=== PATIENT | male | born 1975 | race Hispanic/Latino ===

== ENCOUNTER 2018-07-17 04:30 | Observation (INO) | payer BC, SELFPAY ==
--- OUTSIDE RECORDS SUMMARY | 2018-07-17 06:02 | XMS REPORT | Clinical Summary ---
:1975 Author Organization [facility] Address [address] [place] [address] Care Team Providers Name Role Phone Mae Boyle MD Primary Care Provider Allergies Active Allergy Reactions Severity Noted Date Comments Caffeine Coffee (Coffea Arabica) 03/29/2016 Current Medications Prescription Sig. Disp. Refills Start Date End Date Status anastrozole Take 1 mg by 1 05/30/2017 Active (ARIMIDEX) 1 mg mouth once chemo tablet daily. testosterone Inject into the Active cypionate shoulder, thigh, (DEPOTESTOTERONE or buttocks CYPIONATE) 200 every 14 mg/mL injection (fourteen) days. naproxen Take 1 tablet 28 tablet 0 01/30/2018 Active (NAPROSYN) 500 MG (500 mg total) 9 tabletIndications: by mouth 2 (two) Low back pain with times a day with sciatica, sciatica meals. laterality unspecified, unspecified back pain laterality, unspecified chronicity metroNIDAZOLE Take 1 tablet 30 tablet 0 07/19/2017 (FLAGYL) 500 MG (500 mg total) 7 tablet by mouth 3 (three) times a day for 10 days. ciprofloxacin Take 1 tablet 20 tablet 0 07/19/2017 (CIPRO) 500 MG (500 mg total) 7 tablet by mouth 2 (two) times a day for 10 days. butenafine 1 % Apply 1 24 g 0 07/19/2017 Discontinued cream application 7 topically 2 (two) times a day. Apply to affected areas for 2 weeks amoxicillin 08/20/2017 Discontinued (AMOXIL) 500 MG 7 capsule pantoprazole 08/20/2017 Discontinued (PROTONIX) 40 MG 7 EC tablet oseltamivir Take 1 capsule 10 capsule 0 08/21/2017 (TAMIFLU) 75 MG (75 mg total) by 7 capsuleIndications mouth 2 (two) : Cough times a day for 5 days. Active Problems Problem Noted Date Hyperlipidemia 12/28/2016 Resolved Problems Problem Noted Date Resolved Date Malignant neoplasm of testis 12/28/2016 07/19/2017 Encounters Date Type Specialty Care Team Description 01/30/2018 Office Visit Family Mae Moreno, Dizziness ( Primary Dx); Low back pain with sciatica, sciatica laterality unspecified, unspecified back pain laterality, unspecified chronicity 01/14/2018 Telephone Family Mae Moreno MD 01/14/2018 Telephone Family Mae Moreno MD 10/07/2017 Office Visit Family Medicine Colleen Dinh Annual physical exam (Primary Dx); MD Yogi Impaired glucose tolerance; Alfred, Tram Cornelius, Other fatigue DO 09/25/2017 Telephone Family Medicine Aneesh Jenkins, DRY HEAT ROOM ATTENDANT 09/25/2017 Telephone Family Medicine Aneesh Jenkins, DRY HEAT ROOM ATTENDANT 08/22/2017 Telephone Family Medicine Mae Boyle MD 08/21/2017 Office Visit Family Mae Moreno, Sore throat ( Primary Dx); Cough 08/21/2017 Telephone Family Medicine Jessy Anaya, DRY HEAT ROOM ATTENDANT 07/24/2017 Office Visit Family Medicine Gisela Barnes, Abdominal pain, unspecified location (Primary Dx); Nausea and vomiting, intractability of vomiting not specified, unspecified vomiting type; Epistaxis; Dizziness; Headache, unspecified headache type; Speech disturbance, unspecified type; History of concussion; History of testicular cancer; Low testosterone 07/19/2017 Lab Lab Mae Boyle, Periumbilical abdominal pain 07/19/2017 Office Visit Family Mae Moreno, Acute pain of right shoulder (Primary Dx); Periumbilical abdominal pain; Onychomycosis of toenail; Tinea pedis of both feet after 07/16/2017 Immunizations Name Dates Previously Given Next Due Tdap 03/29/2010 Family History Medical History Relation Name Comments Heart murmur Brother Hypertension Father Diabetes Maternal Grandfather Diabetes Maternal Grandmother Liver cancer Maternal Grandmother Stroke Mother Diabetes Paternal Grandfather Diabetes Paternal Grandmother Hyperlipidemia Sister Relation Name Status Comments Brother Father Alive Maternal Grandfather Maternal Grandmother Mother Alive Paternal Grandfather Paternal Grandmother Sister Social History Tobacco Use Types Packs/Day Years Used Date Never Smoker Smokeless Tobacco: Never Used Alcohol Use Drinks/Week oz/Week Comments Yes ocassional Sex Assigned at Date Recorded Not on file Last Filed Vital Signs Vital Sign Reading Time Taken Blood Pressure 124/62 01/30/2018 11:59 AM CDT Pulse 93 01/30/2018 11:59 AM CDT Temperature 36.9 C (98.4 F) 01/30/2018 11:59 AM CDT Respiratory Rate 16 07/24/2017 7:59 AM CDT Oxygen Saturation 95% 01/30/2018 11:59 AM CDT Inhaled Oxygen Concentration - - Weight 108 kg (239 lb) 01/30/2018 11:59 AM CDT Height 174 cm (5' 8.5") 01/30/2018 11:59 AM CDT Body Mass Index 35.81 01/30/2018 11:59 AM CDT Plan of Treatment Health Maintenance Due Date Last Done Comments INFLUENZA VACCINE 06/18/2018 Procedures Procedure Name Priority Date/Time Associated Diagnosis Comments POCT RAPID STREP A Routine 08/21/2017 12:25 Sore throat Results for this PM CDT procedure are in the results section. POCT INFLUENZA A/B Routine 08/21/2017 12:22 Cough Results for this PM CDT procedure are in the results section. AMYLASE LEVEL Routine 07/19/2017 1:21 Periumbilical Results for this PM CDT abdominal pain procedure are in the results section. URINALYSIS, COMPLETE, Routine 07/19/2017 1:21 Periumbilical Results for this WITH REFLEX TO PM CDT abdominal pain procedure are in CULTURE the results section. COMPREHENSIVE Routine 07/19/2017 1:21 Periumbilical Results for this METABOLIC PANEL PM CDT abdominal pain procedure are in the results section. CBC WITH PLATELET AND Routine 07/19/2017 1:21 Periumbilical Results for this DIFFERENTIAL PM CDT abdominal pain procedure are in the results section. after 07/16/2017 Results POC rapid strep A (08/21/2017 12:25 PM) Rapid strep A antigen result Negative Negative Specimen Swab POC Influenza A/B (08/21/2017 12:22 PM) Rapid Influenza A Ag negative Rapid Influenza B Ag negative Specimen Nasopharyngeal URINALYSIS, COMPLETE, WITH REFLEX TO CULTURE (07/19/2017 1:21 PM) Color, UA DARK YELLOW YELLOW [employer] Appearance CLEAR CLEAR [facility] Specific gravity, urine 1.028 1.001 - 1.035 [facility] pH, urine 6.5 5.0 - 8.0 [facility] Glucose, urine NEGATIVE NEGATIVE [facility] Bilirubin, UA NEGATIVE NEGATIVE [facility] Ketones, UA NEGATIVE NEGATIVE [facility] Occult blood, urine NEGATIVE NEGATIVE [facility] Protein, UA NEGATIVE NEGATIVE [facility] Nitrite, UA NEGATIVE NEGATIVE [facility] Leukocyte esterase, UA NEGATIVE NEGATIVE [facility] WBC, UA NONE SEEN < OR=5 /HPF [facility] RBC, UA 0-2 < OR=2 /HPF [facility] Squamous epithelial NONE SEEN < OR=5 /HPF [facility] cells, UA Bacteria, UA NONE SEEN NONE SEEN /HPF [facility] Hyaline casts, UA NONE SEEN NONE SEEN /LPF [facility] Reflex NO CULTURE INDICATED [facility] Specimen Blood Resulting Agency Comment Performing Organization Information: Site ID: [id number] Name: [facility] Address: [address] [place] [id number] Director: Tammi Jack MD Performing Organization Address City/State/Zipcode Phone Number [employer] [facility] [address] [place], [place] [id number] CBC with platelet and differential (07/19/2017 1:21 PM) WBC 8.3 3.8 - 10.8 Thousand/uL [facility] RBC 6.28 (H) 4.20 - 5.80 Million/uL [facility] HGB 17.0 13.2 - 17.1 g/dL [facility] HCT 51.3 (H) 38.5 - 50.0 % [facility] MCV 81.7 80.0 - 100.0 fL [facility] MCH 27.1 27.0 - 33.0 pg [facility] MCHC 33.1 32.0 - 36.0 g/dL [facility] RDW 13.0 11.0 - 15.0 % [facility] Platelet count 219 140 - 400 Thousand/uL [facility] MPV 11.3 7.5 - 12.5 fL [facility] Neutrophils, absolute 4,250 1,500 - 7,800 cells/uL [facility] Lymphocytes, absolute 2,648 850 - 3,900 cells/uL [facility] Monocytes, absolute 772 200 - 950 cells/uL [facility] Eosinophils, absolute 564 (H) 15 - 500 cells/uL [facility] Basophils, absolute 66 0 - 200 cells/uL [facility] Neutrophils 51.2 % [facility] Lymphocytes 31.9 % [facility] Monocytes 9.3 % [facility] Eosinophils 6.8 % [facility] Basophils + RC 0.8 % [facility] Specimen Blood Resulting Agency Comment Performing Organization Information: Site ID: [id number] Name: [facility] Address: [address] [place] [id number] Director: Tammi Jack MD Performing Organization Address [facility] Phone Number [facility] [place] [phone] Amylase level (07/19/2017 1:21 PM) Amylase 30 21 - 101 U/L [employer] [facility] Specimen Blood Resulting Agency Comment Performing Organization Information: Site ID: [id number] Name: [facility] Address: [address] [place] [phone] Director: Tammi Jack MD Performing Organization Address [facility] Phone Number [facility] [employer] [address] [address] Comprehensive metabolic panel (07/19/2017 1:21 PM) Glucose 88 65 - 99 mg/dL [employer] [facility] Comment: [facility] Fasting reference interval BUN, whole blood 16 7 - 25 mg/dL [employer] Creatinine 1.17 0.60 - 1.35 mg/dL [facility] EGFR Non-Afr. Chinese 76 > OR=60 [facility] mL/min/1.73m2 [facility] EGFR 89 > OR=60 [facility] mL/min/1.73m2 [facility] BUN/creatinine ratio NOT APPLICABLE 6 - 22 (calc) [facility] Sodium 144 135 - 146 mmol/L [facility] Potassium 4.9 3.5 - 5.3 mmol/L [facility] Chloride 104 98 - 110 mmol/L [facility] CO2 28 20 - 31 mmol/L [facility] Calcium 10.1 8.6 - 10.3 mg/dL [facility] Protein 7.0 6.1 - 8.1 g/dL [facility] Albumin, S 4.4 3.6 - 5.1 g/dL [facility] Globulin, total 2.6 1.9 - 3.7 g/dL [employer] [facility] (calc) [facility] Albumin/globulin ratio 1.7 1.0 - 2.5 (calc) [facility] Total bilirubin 0.7 0.2 - 1.2 mg/dL [facility] Alkaline phosphatase 119 (H) 40 - 115 U/L [facility] AST 24 10 - 40 U/L [facility] ALT 30 9 - 46 U/L [employer] [facility] Specimen Blood Resulting Agency Comment Performing Organization Information: Site ID: [id number] Name: [facility] Address: [address] [place] [address] Director: Tammi Jack MD Performing Organization Address City/State/Zipcode Phone Number [facility] [employer] [facility] [address] [place] [address] after 07/16/2017 Insurance Payer Benefit Plan / Group Subscriber ID Type Phone Address BCBS MARIELY WALLACE xxxxxxxxxxxx PPO [phone] [address]
[2018-07-17 06:22] VITALS: BMI 35.9
[2018-07-17] MEDS ORDERED: ACETAMINOPHEN 500 MG TAB PO PRN (07:21)
[2018-07-17] MEDS ORDERED: MORPHINE 4 MG/ML SYR IV PRN (07:21)
[2018-07-17] MEDS ORDERED: SODIUM CHLORIDE 0.9% 10ML INJ IV PRN (07:38)
--- NOTE | 2018-07-17 08:58 | P.HP ---
Certification for Inpatient Patient admitted to: Observation With expected LOS: <2 Midnights Patient will require the following post-hospital care: None Practitioner: I am a practitioner with admitting privileges, knowledge of patient current condition, hospital course, and medical plan of care. Services: Services provided to patient in accordance with Admission requirements found in Title 42 Section 412.3 of the Code of Federal Regulations Patient History Date of Service: 07/17/18 Reason for admission: Chest pain rule out acute coronary syndrome History of Present Illness: Patient is a 42-year-old gentleman who is admitted to the hospital with chest discomfort. Patient was admitted to the hospital from the [place] emergency room. Patient also had hematemesis. Patient was admitted to the hospital for further evaluation. Patient denies any other symptoms. Patient's chest pain was persistent. Patient also had diaphoresis. Patient denies any other complaints. Patient will be admitted for further evaluation. Allergies coffee (Coffea arabica) Adverse Reaction (Verified 07/17/18 06:35) Itching/Hives/Rash Coke Allergy (Mild, Uncoded 06/29/13 02:24) Hives Home Medications: Docosahexanoic Acid/Epa [Fish Oil Softgel] 1 each PO DAILY 06/29/13 Glutamine 1 tbsp PO BID 06/29/13 Multivitamin [Daily Multivitamin] 1 each PO DAILY 06/29/13 levoFLOXacin [Levaquin*] 750 mg PO DAILY #7 tab 07/03/13 - Past Medical/Surgical History Has patient received pneumonia vaccine in the past: No Diabetic: No -: Testicular CA -: Diverticulitis -: ANxiety -: Removed left testical and tumor, rotator cuff sx left shoulder (2004). -: Left knee reconstruction, fracture repair of scalp on right side, -: plastic placed on left side of scalp, muscle repair of left arm - Family History Mother Medical History: Stroke - Social History Smoking Status: Never smoker Alcohol use: Yes CD- Drugs: No Caffeine use: No Place of Residence: Home Review of Systems 10-point ROS is otherwise unremarkable Physical Examination - Vital Signs Temperature: 97.0 F Blood Pressure: 122/78 Pulse: 54 Respirations: 18 Pulse Ox (%): 99 - Physical Exam General: Alert, In no apparent distress, Oriented x3 HEENT: Atraumatic, PERRLA, Mucous membr. moist/pink, EOMI, Sclerae nonicteric Neck: Supple, 2+ carotid pulse no bruit, No LAD, Without JVD or thyroid abnormality Respiratory: Clear to auscultation bilaterally, Normal air movement Cardiovascular: Regular rate/rhythm, Normal S1 S2, No murmurs Gastrointestinal: Normal bowel sounds, Soft and benign, Non-distended, No tenderness Musculoskeletal: No clubbing, No swelling, No tenderness Integumentary: No rashes Neurological: Normal gait, Normal speech, Normal strength at 5/5 x4 extr, Normal tone, Sensation intact, Cranial nerves 3-12 intact, Normal affect Lymphatics: No axilla or inguinal lymphadenopathy Assessment & Plan - Problems (Diagnosis) (1) Chest pain, rule out acute myocardial infarction Current Visit: Yes Status: Acute (2) History of testicular cancer Current Visit: Yes Status: Acute (3) Hematemesis Current Visit: Yes Status: Acute - Plan 1. Serial troponins and EKG 2. Cardiology consultation 3. Echocardiogram and stress test if cardiology is agreeable 4. Anti-platelet therapy, anti coagulation, beta-hua, statin, and O2 as needed 5. IV morphine for pain 6. Nitro p.r.n. 7. PPI drip 8. Serial H&H 9. GI and DVT prophylaxis Discharge Plan: Home Plan to discharge in: 24 Hours - Advance Directives Does patient have a Living Will: No Does patient have a Durable POA for Healthcare: No - Code Status/Comfort Care Code Status Assessed: Yes Code Status: Full Code Critical Care: No Time Spent Managing PTS Care (In Minutes): 50
[2018-07-17] MEDS: ENOXAPARIN 40 MG/0.4 ML SQ SCH (09:26)
[2018-07-17] MEDS: PANTOPRAZOLE 40 MG INJ IVP SCH ×2 (09:27→23:09)
[2018-07-17] MEDS: METOPROLOL TAR 50 MG TAB PO SCH ×2 (09:27→23:09)
[2018-07-17] MEDS: ASPIRIN EC 81 MG TAB PO SCH (09:28)
[2018-07-17 09:50] VITALS: O2SAT 99
--- NOTE | 2018-07-17 09:52 | RAD REPORT ---
EXAM DESCRIPTION: US - Abdomen Exam Limited - 07/17/2018 9:17 am CLINICAL HISTORY: Abdominal pain/right upper quadrant pain COMPARISON: None FINDINGS: Two small echogenic structures are present the gallbladder neck. Posterior shadowing is no t seen. The gallbladder wall is not thickened. The biliary tree is normal caliber. IMPRESSION: Two small echogenic structures within the gallbladder probably represent polyps or echog enic bile. Another consideration is that they represent stones which did not shadow secondary to a co mbination of its small size and technical factors. There is no evidence of cholecystitis
--- NOTE | 2018-07-17 11:04 | RAD REPORT ---
EXAM DESCRIPTION: CTAbdomen Pelvis W Contrast - 07/17/2018 10:25 am CLINICAL HISTORY: Abdominal pain. hemetemesis COMPARISON: CT ABD PELVIS W CONTRAST dated 07/11/2013; CT ABD PELVIS W CONTRAST dated 06/28/2013 TECHNIQUE: Biphasic CT imaging of the abdomen and pelvis was performed with 100 ml non-ionic IV cont rast. All CT scans are performed using dose optimization technique as appropriate and may include automated exposure control or mA/KV adjustment according to patient size. FINDINGS: Small calcified granulomas present in medial right lung base.Small gallstones are present gallbladder. The liver, spleen, pancreas, adrenal glands and kidneys are within normal limits. No bowel obstruction, free air, free fluid or abscess. Postsurgical changes are present about the sig moid colon. The appendix is normal. No evidence of significant lymphadenopathy. No suspicious bony findings. IMPRESSION: Cholelithiasis.
--- NOTE | 2018-07-17 17:24 | ECHO ---
HEIGHT: 5 ft 8 in WEIGHT: 236 lb 8 oz DATE OF STUDY: 07/17/[address]: Mecca Hector MD 2-DIMENSIONAL: YES M.MODE: YES DOPPLER: YES COLOR FLOW: YES TDS: PORTABLE: DEFINITY: BUBBLE STUDY: DIAGNOSIS: CONGESTIVE HEART FAILURE CARDIAC HISTORY: CATHERIZATION: NO SURGERY: NO PROSTHETIC VALVE: NO PACEMAKER: NO MEASUREMENTS (cm) DIASTOLIC (NORMALS) SYSTOLIC (NORMALS) IVSd 1.0 (0.6-1.2) LA Diam 3.3 (1.9-4.0) LVEF 75% LVIDd 4.6 (3.5-5.7) LVIDs 2.6 (2.0-3.5) %FS 43% LVPWd 1.1 (0.6-1.2) Ao Diam 3.8 (2.0-3.7) 2 DIMENSIONAL ASSESSMENT: RIGHT ATRIUM: NORMAL LEFT ATRIUM: NORMAL RIGHT VENTRICLE: NORMAL LEFT VENTRICLE: NORMAL TRICUSPID VALVE: NORMAL MITRAL VALVE: NORMAL PULMONIC VALVE: NORMAL AORTIC VALVE: SCLEROSIS PERICARDIAL EFFUSION: NONE AORTIC ROOT: NORMAL LEFT VENTRICULAR WALL MOTION: NORMAL DOPPLER/COLOR FLOW: NORMAL COMMENTS: AORTIC SCLEROSIS WITH NO STENOSIS. NORMAL LEFT VENTRICULAR SIZE AND FUNCTION. NO WALL MOTION ABNORMALITY. TECHNOLOGIST: CORIE MILLER
[2018-07-18 01:23] LABS: Urine Appearance CLEAR; Urine Bilirubin NEGATIVE (NEG); Urine Blood NEGATIVE (NEG); Urine Color YELLOW; Urine Glucose NEGATIVE (NEG); Urine Microscopic Reflex NO UMIC; Urine Protein NEGATIVE (NEG); Urine Specific Gravity >=1.030 (1.005-1.030)
[2018-07-18] MEDS ORDERED: REGADENOSON 0.4 MG/5 ML SYR IV ONE (08:08)
[2018-07-18 08:49] VITALS: BP 114/66
--- NOTE | 2018-07-18 12:26 | RAD REPORT ---
EXAM DESCRIPTION: NM - Rest Stress Cardiac Imaging - 07/18/2018 12:21 pm CLINICAL HISTORY: CP Chest pain. COMPARISON: No comparisons TECHNIQUE: The patient was administered approximately 10mCi of Tc 99m Sestamibi prior to resting SPE CT imaging of the heart. The patient was then administered approximately 30 mCi of Tc 99m Sestamibi f ollowing exercise or pharmacologic stress. Multiplanar SPECT images were reviewed. FINDINGS: No stress induced ischemic defect is seen to suggest stress induced ischemia. No fixed def ect is seen to suggest hibernating myocardium or scarred myocardium. The end diastolic volume is 106 ml, the end systolic volume is 38 ml, and the ejection fraction is 64 %. IMPRESSION: No stress induced ischemia.
[2018-07-18] MEDS: PANTOPRAZOLE 40 MG INJ IVP SCH (12:44)
[2018-07-18] MEDS: METOPROLOL TAR 50 MG TAB PO SCH (12:44)
[2018-07-18] MEDS: ASPIRIN EC 81 MG TAB PO SCH (12:45)
[2018-07-18] MEDS: ENOXAPARIN 40 MG/0.4 ML SQ SCH (12:46)
[2018-07-18 14:58] VITALS: TEMP 97
--- NOTE | 2018-07-18 15:05 | P.SSS ---
Patient History Date of Service: 07/18/18 Reason for admission: Chest pain rule out acute coronary syndrome History of Present Illness: Patient is a 42-year-old gentleman who is admitted to the hospital with chest discomfort. Patient was admitted to the hospital from the [place] emergency room. Patient also had hematemesis. Patient was admitted to the hospital for further evaluation. Patient denies any other symptoms. Patient's chest pain was persistent. Patient also had diaphoresis. Patient denies any other complaints. Patient will be admitted for further evaluation. Allergies coffee (Coffea arabica) Adverse Reaction (Verified 07/17/18 06:35) Itching/Hives/Rash Coke Allergy (Mild, Uncoded 06/29/13 02:24) Hives Home Medications: Anastrozole [Arimidex*] 1 mg PO DAILY 07/17/18 Testost Cypionate [Depo-Testosterone*] 0.5 ml IM EVERY 7TH DAY 07/17/18 - Past Medical/Surgical History Has patient received pneumonia vaccine in the past: No Diabetic: No -: Testicular CA -: Diverticulitis -: ANxiety -: Removed left testical and tumor, rotator cuff sx left shoulder (2004). -: Left knee reconstruction, fracture repair of scalp on right side, -: plastic placed on left side of scalp, muscle repair of left arm - Family History Mother -: Stroke - Social History Smoking Status: Never smoker Alcohol use: Yes CD- Drugs: No Caffeine use: No Place of Residence: Home Review of Systems 10-point ROS is otherwise unremarkable General: As per HPI Physical Examination - Vital Signs Temperature: 97 F Blood Pressure: 114/66 Pulse: 61 Respirations: 18 Pulse Ox (%): 97 - Physical Exam General: Alert, In no apparent distress HEENT: Atraumatic, PERRLA, Mucous membr. moist/pink, EOMI, Sclerae nonicteric Neck: Supple, 2+ carotid pulse no bruit, No LAD, Without JVD or thyroid abnormality Respiratory: Clear to auscultation bilaterally, Normal air movement Cardiovascular: Regular rate/rhythm, Normal S1 S2 Gastrointestinal: Normal bowel sounds, No tenderness Musculoskeletal: No tenderness Integumentary: No rashes Neurological: Normal gait, Normal speech, Normal strength at 5/5 x4 extr, Normal tone, Normal affect Lymphatics: No axilla or inguinal lymphadenopathy - Diagnosis (Problem(s)) (1) Chest pain, rule out acute myocardial infarction Onset Date: 07/18/18 Current Visit: Yes Status: Ruled-out (2) Hematemesis Onset Date: 07/18/18 Current Visit: Yes Status: Resolved (3) History of testicular cancer Onset Date: 07/18/18 Current Visit: Yes Status: Chronic Treatment Summary: Overall during the hospital stay patient remained stable. Patient was initially admitted to the hospital for chest pain and hematemesis. Patient's chest pain was worked up to rule out ACS. Patient had cardiology consulted who recommended patient get an echocardiogram and stress test done here in the hospital. Patient's echocardiogram and stress test were both negative for any acute coronary syndrome. Cardiology then recommended the patient be discharged home safely. Patient was also complaining of having some hematemesis. However chest x-ray was negative for any acute abnormality. Patient at that time was asked to follow up with pulmonology outpatient for his hematemesis. Patient stated that his hematemesis has resolved and he has not had any episodes for past 2-3 days. Most likely patient's hematemesis was secondary to coughing. Patient demonstrated understanding and thus was discharged home under stable condition. - Disposition Disposition: ROUTINE DISCHARGE Condition: GOOD Patient Discharge Instructions: Please f.u with PCP and Pulmonology. . You were admitted to the hosptial for Chest Pain and had workup for it. Your ECHO and Stress test where within normal limits without evidence of coronary heart disease. You also had hematemesis which seems to be resolved and thus can f.u with Pulmonology outpt. Diet: Regular Activity: Ad addie
--- NOTE | 2018-07-19 05:50 | CON ---
Date of Consultation: 07/18/2018 Additional Admitting Physician: Namita Patel MD. Reason For Consultation: Chest pain. History Of Present Illness: Mr. Verdugo is a 42-year-old [place] male without any significant past medical history. He came in with chest tightness and sharp chest pain, nausea, diaphoresis, an d hypertension. Under some stress at work. No previous cardiac history. Denied PND, orthopnea, ped al edema, palpitations, or syncope. Workup is negative so far. Past Medical History: Negative. Allergies: TO COFFEE AND COKE. Medications: At home include the testosterone. 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 Review of Systems: Negative. Social History: Negative for tobacco. Family History: Negative for heart disease. Physical Examination: Vital Signs: Stable. He was afebrile. HEENT: Negative. Neck: Supple without any bruit, lymphadenopathy, JVD, or thyromegaly. Chest: Clear to auscultation and percussion. Cardiac: Revealed regular rhythm and rate without any murmurs, gallops, or rubs. Abdomen: Benign. Extremities: Revealed no clubbing, cyanosis, or edema. Diagnostic Data: Normal. Impression And Plan: Atypical chest pain with different characters of tightness and sharpness, nause a, diaphoresis. I think his symptoms may be related to hypertension. I suggest an echocardiogram an d a Lexiscan before we make any further decisions. But I will suggest some antihypertensive medicati on, either an ARB or an TERESSA inhibitor or even a low-dose beta-hua before he goes home. We would be happy to see him in the office if his workup is negative. GISELLE/JINNY Voice ID: [id number] Report ID: [id number]
--- NOTE | 2018-07-22 09:44 | TREADPHA ---
DX: CHEST PAIN Date of Study: 07/18/2018 Ht: 5 8 Wt: 236 lb 8 oz Consulting Physician: BRANDON MEDICATIONS: TYLENOL, ASPIRIN, LOPRESSOR, PROTONIX HISTORY: 42 YEAR OLD MALE WITH COMPLAINTS OF CHEST PAIN. NO MEDICAL HISTORY. PHYSICIAL EXAMINATION: RESTING B.P.: 119/65 RESTING H.R.: 57 RESTING EKG: NORMAL SINUS RHTYHM, EARLY REPOLARIZATION PROTOCOL: LEXISCAN EXERCISE TIME: 3:30 B.P. AT PEAK STRESS: 123/74 IMPRESSION: LEXISCAN INJECTED, CARDIOLITE INJECTED PER PROTOCOL. SEE NUCLEAR MEDICINE REPORT. NO SUPRAVENTRICULAR TACHYCARDIA. NO VENTRICULAR TACHYCARDIA. NO PREMATURE VENTRICULAR COMPLEXES. DENIED CHEST PAIN.
== END 2018-07-18 15:43 | disposition home or self-care (01) ==
LOC: 4TH 04:30
PROVIDERS: ADMIT Hospitalist; ATTEND Family Medicine
DX: R07.89 Other chest pain (principal); F41.9 Anxiety disorder, unspecified; K92.0 Hematemesis; Z85.47 Personal history of malignant neoplasm of testis
CPT/HCPCS: 36415; 74177; 76705; 78452; 80061; 81003; 84484; 93017; 93306; A9500; C9113; G0378; J1650; J2785; Q9967